=== PATIENT | female | born 2000 ===

== ENCOUNTER 2025-01-31 15:52 | Outpatient (AMB) | payer BC, SELFPAY ==
--- NOTE | 2025-01-31 15:58 | MHC.OFFVIS ---
Intake Visit Reasons: 6 month sz Allergies No Known Allergies Allergy (Verified 01/23/25 07:05) HPI Comments Details: 24 years old right-handed woman with suspected seizure disorder who I initially saw in Jan. (With no significant past medical history started having episodes when she was in high school. She remember the first one and all of them have been similar. Typically, she would have an odd feeling that she was having difficulty describing. She said that with that feeling she would knew that it was coming. Her left leg would stiffened, and her left side of the body shook, and she could space out or pass out but not for long. It could last for a second or few seconds or a few minutes. She felt tired afterwards especially if it lasted long. There was no associated physical injury. Routine and 48 amb EEGs in 2023 were ok, and brain MRI did not reveal a significant abnormality.) She had 1 more episode in August of this year. She did not feel well and was also confused and amnestic and lethargic for awhile. She said there for 30 minutes and later came home and slept. There was no obvious trigger. [facility] Medical History (Updated 01/31/25 @ 16:01 by Aidan Babcock MD) Seizure disorder Review of Systems Const Details: Constitutional:?No fever, chills, fatigue, weight loss, or night sweats. HEENT:?No headache, vision changes, hearing loss, nasal congestion, sore throat. Neurological:?No dizziness, syncope, seizures, numbness, tingling, weakness, tremors, memory loss. Psychiatric:?No anxiety, depression, mood swings, sleep disturbance, or hallucinations. Endocrine:?No heat/cold intolerance, polydipsia, polyuria, or hair/skin changes. Hematologic/Lymphatic:?No easy bruising, bleeding, or lymphadenopathy. Integumentary (Skin):?No rash, lesions, itching, or color changes. ? Physical Exam Neuro Other: Mental Status: Alert and oriented to person, place, and time. Normal attention. Normal spontaneous speech, fluency, and comprehension. No obvious issues with mood and memory. Affect is appropriate. Cranial Nerves: CN II: Visual mcintosh full to confrontation, visual acuity intact. CN III, IV, : Pupils equal, round, reactive to light and accommodation. Extraocular movements are normal. CN V: Facial sensation is normal. CN VII: Facial movements symmetrical. CN VIII: Hearing intact to bedside conversation is normal. CN IX, X: Palate elevates symmetrically. CN XI: Shoulder shrug and head turn symmetrical. CN XII: Tongue midline without atrophy or fasciculations. Extrapyramidal: Full facial expressions and blinking. No rigidity. Movements are appropriate with no tremor or abnormality. Speech: Normal; no dysarthria or tremor. Assessment & Plan Assessment & Plan (1) Seizure disorder: Comment: 48 hr EEG at [facility] in May 2024: OK with no events reported Routine EEG at [facility] in 2023: WNL MRI brain at [facility] in 2023: Brain ok, sagittal sinus area dermoid? Code(s): G40.909 - Epilepsy, unspecified, not intractable, without status epilepticus Category: Medical Plan Impression: Suspected complex partial seizure disorder Recommendations: Sleep-deprived EEG. Orders: Orders EEG awake and asleep Today G40.909 - Epilepsy, unspecified, not intractable, without status epilepticus Coding Level of Care Code Est Pt Level 4 (24785) Diagnoses Seizure disorder G40.909
--- OUTSIDE RECORDS SUMMARY | 2025-01-31 16:15 | XMS_ITS | Clinical Summary ---
Author Organization [facility] Address [address] [place] [address] Phone Care Team Providers Care School Commissioner Name Role Phone Renee Franks MD Primary Care Provider [phone] Allergies No known active allergies Medications meclizine (ANTIVERT) 25 mg tablet Take 1 Tablet by mouth 3 times daily as needed (dizziness) . 02/10/2024 Active cholecalciferol (Vitamin D3) 50 mcg (2,000 unit) tablet Take 1 tablet (2,000 Units total) by mouth 1 (one) time each day. 90 tablet 3 08/17/2024 Active Active Problems Problem Noted Date Diagnosed Date PCOS (polycystic ovarian syndrome) 08/27/2020 COVID-19 virus infection 08/09/2020 Overview (05/31/2024): 07/21/2020. Was assymptomatic Irregular menses 07/15/2017 Wears glasses 07/15/2017 Dizziness 07/25/2015 Scoliosis 01/21/2015 Breast asymmetry 01/10/2014 Constipation 12/19/2010 Allergic rhinitis 11/14/2010 Overview (05/31/2024): On Flonase Posture abnormality 11/14/2010 Syncope 11/14/2010 Overview (05/31/2024): Saw cardio, given BP meds, off now and better, before spring: saw Dr Sin, had some concern for syncope, he cleared her for sport and will f/u with her about holter monitor for few PVCs at an er Encounters Date Type Department Care Team Description 11/28/2024 3:00 PM EDT Office Visit Obstetrics and Gynecology - [place] [address] [place] [id number] Sowmya Rosales CNM Women's annual routine gynecological examination (Primary Dx); Family history of breast cancer; Encounter for nonprocreative genetic counseling 11/09/2024 Telephone Obstetrics and Gynecology - [place] [address] [place] [address] Meena Maxwell, RN Appointment from Last 3 Months Immunizations Name Administration Dates Next Due DTP 04/09/1999,02/05/1999,1998 DTaP (Infanrix) 6wks to less than 7yo 09/17/2003 ,12/31/1999 [id number]-GZB (Pentacel) 2mo to less than 5yo 10/01/1999,04/09/1999,02/05/1999,12/03 HPV 9-valent (Gardisil) 9yo to less than 46yo 07/15/2017 Hepatitis B Pediatric (Enger ix B; Recombivax HB) to less than 20 yo 04/09/1999,1998,1998 IPV Inactivated polio (Ipol) 6wks and older 09/17/2003,10/01/1999,02/05/1999,12/03 Influenza Quadravalent, MDCK , 0.5ml, preservative free (Flucelvax) 6mo and older 04/23/2023,05/06/2020 Influenza trivalent, 0.5mL, preservative free (Fluarix; FluLaval; Fluzone) ages 6mo and older (Afluria) 3 years and older 07/15/2017,04/06/2016,04/26/2015,03/29,05/09/2013,03/31/2012,04/16/2011 ,04/03/2009,05/19/2008,06/07/2003 MMR, measles mumps and rubel la Live (Priorix; M-M-R II) 12mo and older 09/17/2003,10/01/1999 Meningococcal MCV4P 01/21/2015,10/02/2008 PPD Test 01/21/2017, 7,11/18/2004,09/16 Pfizer SARS-CoV-2 COVID-19, mRNA, LNP-S, preservative free 02/21/2022,05/03/2021,04/13/2021 Tdap Tetanus diptheria acell ular pertussis (Boostrix; Adacel) 7yo and older 04/23/2023,11/14/2010 Varicella live (Varivax) 12m o and older 11/14/2010,10/01/1999 Surgical History Surgery Date Site/Laterality Comments WISDOM TOOTH EXTRACTION PROCEDURE: HISTORICAL WISDOM TEETH EXTRACTION Medical History Medical History Date Comments Syncope DX:Syncope; COMM ENT: saw crdio, low blood pressure, was on meds Syncope DX:Syncope; COMM ENT: saw cardio again 2015, cleeared for sport, they will f/u on pvc seen in er,will do holter monitor Family History Medical History Relation Name Comments Breast cancer Maternal Grandmother Asthma Sister 1 from father's s fatoumata Relation Name Status Comments Father Alive Maternal Grandfather Maternal Grandmother Alive Mother Alive Paternal Grandfather Alive Paternal Grandmother Alive Sister 1 Sister 2 Alive 1/2 Sister 3 Alive 1/2 Social History Tobacco Use Types Packs/Day Years Used Date Smoking Tobacco: Never Smokeless Tobacco: Never Alcohol Use Standard Drinks/Week Comments Yes 0 (1 standard drink = 0.6 oz pur e alcohol) occ Comments Unknown Sex and Gender Information Value Date Recorded Sex Assigned at Not on file Legal Sex Female 10:04 PM EST Gender Identity Not on file Sexual Orientation Not on file Obstetrics History Last Filed Vital Signs Vital Sign Reading Time Taken Comments Blood Pressure 117/70 11/28/2024 3:05 PM EDT Pulse 78 11/28/2024 3:05 PM EDT Temperature - - Respiratory Rate - - Oxygen Saturation 99% 08/15/2024 1:03 PM EST Inhaled Oxygen Concentration - - Weight 52.2 kg (115 lb) 11/28/2024 3:05 PM EDT Height 152.4 cm (5') 02/10/2024 3:21 PM EDT Body Mass Index 22.46 02/10/2024 3:21 PM EDT Plan of Treatment Upcoming Encounters Date Type Department Care Team (Late st Contact Info) Description 08/16/2025 4:00 PM EST Office Visit Internal Medicine - [place] [address] [place] [address] Renee Franks MD [address] [facility] [address] [place] [address] Health Maintenance Due Date Last Done Comments HPV Vaccines (2 - 3-dose series) 08/12/2017 07/15/2017 HIV Screening 05/30/2022 Hepatitis C Screening 05/30/2022 COVID-19 Vaccine ( season) 2024 02/21/2022, 01/09/2022, 05/03/2021, Additional history exists Depression Screening 06/28/2024 Influenza Vaccine (#1) 2025 , 04/23/2023, 05/18/2021, Additional history exists Social Influencers of Health Screening 08/15/2025 08/15/2024 Cervical Cancer Screening: Pap Smear 11/29/2027 11/28/2024 Cholesterol Screening (Lipid Panel) 08/15/2029 08/15/2024, 04/23/2023 DTaP,Tdap,and Td Vaccines (8 - Td or Tdap) 04/23/2033 04/23/2023, 11/14/2010, 09/17/2003, Additional history exists Hepatitis B Vaccines Completed 04/09/1999, 1998, 1998 HIB Vaccines Completed 10/01/1999, 0 10/1999, 04/09/1999, Additional history exists IPV Vaccines Completed 09/17/2003, 0 10/1999, 10/01/1999, Additional history exists MMR Vaccines Completed 09/17/2003, 10/01/1999 Varicella Vaccines Completed 11/14/2010, 10/01/1999 Meningococcal ACWY Vaccine Completed 01/21/2015, Gonorrhea/Chlamydia Screening Discontinued 08/27/2020 Hepatitis A Vaccines Aged Out No long er eligible based on patient's age to complete this topic Meningococcal B Vaccine Aged Out No l onger eligible based on patient's age to complete this topic Pneumococcal Vaccine: Pediatrics (0 to 5 Years) and At-Risk Patients (6 to 49 Years) Aged Out No longer eligible based on patient's age to complete this topic RSV Immunization Patients Under 20 months Aged Out No longer eligible based on patient's age to complete this topic Procedures Procedure Name Priority Date/Time Associated Diagnosis Comments PAP SMEAR Routine 11/28/2024 3:40 PM EDT Women's annual routine gynecological examination LIPID PANEL WITH REFLEX TO DIRECT LDL Routine 08/15/2024 1:43 PM EST Encounter for annual physical exam Encounter for lipid screening for cardiovascular disease HM GONORRHEA/CHLAMYDIA SCRREENING Routine 08/27/2020 from Last 3 Months or Most Recently Relevant to Health Maintenance Results * Pap smear (11/28/2024 3:40 PM EDT) Interpretation Negative for intraepithelial lesion or malignancy 12/01/2024 6:07 PM EDT [facility] General Categorization Negative 12/01/2024 6:07 PM [facility] LMP 11/16/2024 12/01/2024 6:07 PM [facility] Specimen Adequacy Satisfactory for evaluation, endocervical/trinidad sformation zone component present 12/01/2024 6:07 PM EDT [facility] Pap Methodology Liquid Based Pap Test 12/01/2024 6:07 PM EDT [facility] Disclaimer The Pap test is a screening test which carries an inherent false negative rate. These test results should be correlated with the patient's clinical findings and history. This Pap test was processed using an automated screening system. Technical cytopathology services provided by [facility], at [address] [place] [address], [place] [address] (CLIA # [id number]/Wiliam Foster MD, Telephone Clerk.) 12/01/2024 6:07 PM EDT [facility] Console Pap Interpretation Reported 12/01/2024 6:07 PM EDT [facility] Brushing Cervix uteri structure / Unknown 11/28/2024 3:40 PM EDT 11/28/2024 3:41 PM EDT Sowmya Rosales CNM LAB CYTOLOGY ORDERABLES Final Result Performing Organization Address City/State/[facility] Co de Phone Number [facility] [address] [place] [address], [place] [phone] * Lipid panel with reflex to direct LDL (08/15/2024 1:43 PM EST) Cholesterol 144 0 - 200 mg/dL LAB CHEMISTRY METHOD 08/15/2024 7:14 PM EST [facility] Triglycerides 85 0 - 150 mg/dL LAB CHEMISTRY METHOD 08/15/2024 7:14 PM EST [facility] HDL 74 >=40 mg/dL LAB CHEMISTRY METHOD 08/15/2024 7:14 PM EST [facility] LDL Calculated 53 0 - 100 mg/dL LAB CHEMISTRY METHOD 08/15/2024 7:14 PM EST [facility] VLDL Cholesterol [place] 17 mg/dL LAB CHEMISTRY METHOD 08/15/2024 7:14 PM EST [facility] Non HDL Chol. (LDL+VLDL) 70 <145 mg/dL LAB CHEMISTRY METHOD 08/15/2024 7:14 PM EST [facility] Chol/HDL Ratio 1.9 0.0 - 4.4 LAB CHEMISTRY METHOD 08/15/2024 7:14 PM [facility] Blood Venous blood specimen / Unknown Venipuncture / Unknown 08/15/2024 1:43 PM EST 08/15/2024 1:43 PM EST Renee Franks MD LAB BLOOD ORDERABLES Final Resul t [facility] [address] [place] [address], * Gonorrhea/Chlamydia Screening (08/27/2020) Gonorrhea/Chla mydia Screening abstracted us Historical Provider HEALTH MAINTENANCE Final Result from Last 3 Months or Most Recently Relevant to Health Maintenance Insurance [facility] ([facility]) AENA Care Teams School Commissioner Relationship Specialty Start Date End Date Renee Franks MD [address] [place] [id number] PCP - General 02/03/24
== END 2025-01-31 16:12 | disposition home or self-care (01) ==
LOC: HO.HSM 15:52
PROVIDERS: PCP Student in an Organized Health Care Education/Training Program; Referring Provider Student in an Organized Health Care Education/Training Program; Visit Provider Psychiatry & Neurology Neurology
DX: G40.909 Epilepsy, unspecified, not intractable, without status epilepticus (principal)
CPT/HCPCS: 99214